=== PATIENT | female | born 1940 | race Caucasian/White ===

== ENCOUNTER → 2017-03-24 | Outpatient (CLI) | payer OTHER | LOC: CIMAGING 08:41 | PROVIDERS: ATTEND Specialist | DX: R33.9 Retention of urine, unspecified (principal); N13.30 Unspecified hydronephrosis; Z96.0 Presence of urogenital implants | CPT/HCPCS: 76770-PO ==

== ENCOUNTER 2017-04-27 05:58 | Inpatient (IN) | payer OTHER ==
--- NOTE | 2017-04-24 15:09 | CPEKG ---
Heart Rate: 81 RR Interval: 741 P-R Interval: 164 QRSD Interval: 84 QT Interval: 372 QTC Interval: 432 P [place]: 69 QRS [place]: 42 T Wave [place]: 38 EKG Severity - NORMAL ECG - EKG Impression: SINUS RHYTHM Electronically Signed By: Alli Be 24-Apr-2017 16:05:44
[2017-04-27] MEDS ORDERED: LIDOCAINE 1% 2 ML INJ ID PRN (06:40)
[2017-04-27] MEDS ORDERED: LR 1,000 ML IV ONE (06:40)
--- NOTE | 2017-04-27 07:02 | PDANEPAE ---
ANE History of Present Illness 76 year old with bladder tumor ANE Past Medical History - Cardiovascular History Hx Hypertension: Yes Hx Arrhythmias: No Hx Chest Pain: No Hx Coronary Artery / Peripheral Vascular Disease: No Hx CHF / Valvular Disease: No Hx Palpitations: No Cardiovascular History Comment: pcp monitors bp meds. high chol. Loud systolic murmur on exam. Pt reports echo "years ago" Exercise " I walk around the house.". Echo ordered and done. Reviewed with tech. ?severe MR, mild , nl LVFx - Pulmonary History Hx COPD: No Hx Asthma/Reactive Airway Disease: No Hx Recent Upper Respiratory Infection: No Hx Oxygen in Use at Home: No Hx Sleep Apnea: Yes Sleep Apnea Screening Result - Last Documented: Positive Pulmonary History Comment: jessica positive uses cpap- instructed pt to bring to [facility] - Neurologic History Hx Cerebrovascular Accident: No Hx Seizures: No Hx Dementia: No Neurologic History Comment: hx of lumbar and cervical surgeries. peripheral neuropathy to bilateral feet. numbness to fingers - Endocrine History Hx Diabetes: Yes Endocrine History Comment: type 2. hypothyroidism - Renal History Hx Renal Disorders: Yes Renal History Comment: current bladder tumor - Liver History Hx Hepatic Disorders: No - Neurological & Psychiatric Hx Hx Neurological and Psychiatric Disorders: No - Cancer History Hx Cancer: No - Congenital Disorder History Hx Congenital Disorders: No - GI History Hx Gastrointestinal Disorders: No - Other Health History Other Health History: wears glasses. missing teeth - Chronic Pain History Chronic Pain: Yes (low back) - Surgical History Prior Surgeries: lumbar spinal surgery. cervical spine surgery. left delia. bladder surgery ANE Review of Systems - Exercise capacity METS (RN): 3 METS ANE Patient History - Allergies Allergies/Adverse Reactions: Opioids - Morphine Analogues Allergy (Verified 04/19/17 11:00) Other-Enter Comments - Home Medications Home Medications: Gabapentin [Neurontin 300 MG (*)] 300 mg PO HS 04/19/17 [Last Taken 04/26/17] Herbals/Supplements -Info Only 1 ea PO DAILY 04/19/17 [Last Taken 04/26/17] Insulin Glargine [Lantus 100 UNITS/ML (*)] 42 units SC HS 04/19/17 [Last Taken 04/26/17] Levothyroxine [Synthroid 137 mcg (*)] 137 mcg PO DAILY06 04/19/17 [Last Taken ] Lisinopril [Zestril 5 mg (*)] 5 mg PO DAILY 04/19/17 [Last Taken 04/27/17 05:00] Rosuvastatin Calcium [Crestor 10mg (RX)] 10 mg PO DAILY 04/19/17 [Last Taken 05:00] glipiZIDE [Glucotrol] 10 mg PO BIDMEAL 04/19/17 [Last Taken 04/26/17] traMADol [Ultram 50 mg (*)] 50 mg PO Q4HRS 04/19/17 [Last Taken 04/27/17 05:00] - NPO status NPO Since - Liquids (Date): 04/26/17 NPO Since - Liquids (Time): 23:00 NPO Since - Solids (Date): 04/26/17 NPO Since - Solids (Time): 22:00 - Anes Hx Anes Hx: no prior problems - Smoking Hx Smoking Status: Never smoked - Alcohol Use Alcohol Use: None - Family Anes Hx Family Hx Anesthesia Complications: none ANE Labs/Vital Signs - Vital Signs Vital Signs: reviewed preoperatively; see RN documention for details Blood Pressure: 147/74 Heart Rate: 89 Respiratory Rate: 16 O2 Sat (%): 91 Height: 165.1 cm Weight: 77.111 kg ANE Physical Exam - Airway Neck exam: FROM Mallampati Score: Class 2 Mouth exam: poor dentition - Pulmonary Pulmonary: no respiratory distress, clear to auscultation - Cardiovascular Cardiovascular: systolic murmur - ASA Status ASA Status: III ANE Anesthesia Plan Anesthesia Plan: GA w LMA, GA with mask
[2017-04-27] MEDS ORDERED: IOPAMIDOL (ISOVUE-M 300) 15 ML VIAL ONE (07:10)
[2017-04-27] MEDS ORDERED: levOFLOXACIN 500 MG/DEXTROSE 100 ML IV ONE (08:12)
--- NOTE | 2017-04-27 08:25 | ECHO ---
[id number] + + [address] : : [place] [address] : : [phone] + + Adult Echocardiographic Report + --------+ :Name: MAYELIN DALAL KStudy Date: 04/27/2017 07:52 AM : : Hospital Admission Number: [id number] Debra n: Preop: :: 1940 Gender: Female : :Age: 76 yrs Race: WH : :Reason For Study: Murmur : + --------+ MMode/2D Measurements \T\ Calculations IVSd: 0.70 cm LVIDd: 4.7 cm FS: 31.0 % LA dimension: LVPWd: 0.96 cm LVIDs: 3.3 cm EDV(Teich): 4.3 cm 103.2 ml ESV(Teich): 42.6 ml EF(Teich): 58.7 % LVOT diam: 1.9 cmLVLd ap4: 7.5 cm SV(MOD-sp4): LVOT area: EDV(MOD-sp4): 43.0 ml 68.0 ml 2.8 cm2 LVLs ap4: 6.2 cm ESV(MOD-sp4): 25.0 ml EF(MOD-sp4): 63.2 % Normal Measurement Values: + + :LVIDd (3.5-5.7cm) IVSd (0.6-1.1cm) LVPWd (0.6-1.1cm) Aortic Root (2.0-3.7cm)Left Atrium (1.5-4.0cm): :LV Vol(d) (76-115ml) LV Vol(s) (29-48ml) Ejec Fraction (50-65%)PV Carrillo (0.6- 1.2m/s) TV Carrillo (0.4-1.0m/s) : :MV E Carrillo (0.8-1.0m/s)MV A Carrillo (0.3-1.0m/s)LVOT Carrillo (0.7-1.2m/s) Asc Ao Carrillo ( 0.9-1.8m/s) : + + Doppler Measurements \T\ Calculations MV E max carrillo: Ao mean PG: LV V1 max: SV(LVOT): 92.8 cm/sec 18.7 mmHg 89.3 cm/sec 61.0 ml MV A max carrillo: Ao V2 mean: LV V1 max P.6 cm/sec 206.3 cm/sec 3.2 mmHg MV E/A: 0.83 Ao V2 VTI: 68.1 cm LV V1 mean PG: ANNELIESE(I,D): 0.90 cm2 1.9 mmHg LV V1 mean: 64.5 cm/sec LV V1 VTI: 21.6 cm TR max carrillo: 272.8 cm/sec TR max P.8 mmHg RAP systole: 10.0 mmHg RVSP(TR): 39.8 mmHg Left Ventricle The left ventricle is normal in size. There is normal left ventricular wall thickness. Left ventricular systolic function is normal. Ejection Fraction = 60-65%. No regional wall motion abnormalities noted. Right Ventricle The right ventricle is normal in size and function. Atria The left atrium is mildly dilated. Right atrial size is normal. The interatrial septum is intact with no evidence for an atrial septal defect. Mitral Valve The mitral valve is normal in structure and function. There is no evidence of mitral valve prolapse. There is no mitral valve stenosis. There is mild mitral regurgitation. Tricuspid Valve Normal tricuspid valve. There is severe tricuspid regurgitation. Right ventricular systolic pressure is 35-40mmHg. Aortic Valve Moderate to severe calcification. Mild valvular aortic stenosis. AV max PG is 30mmHG. AV mean PG is 19mmHG. Trace aortic regurgitation. Pulmonic Valve The pulmonic valve is normal in structure and function. Mild pulmonic valvular regurgitation. Great Vessels The aortic root is normal size. Pericardium/Pleural There is no pericardial effusion. Conclusion A complete two-dimensional transthoracic echocardiogram was performed (2D, M-mode, Doppler and color flow Doppler). Left ventricular systolic function is normal. Ejection Fraction = 60-65%. The left atrium is mildly dilated. Mild mitral regurgitation. Severe tricuspid regurgitation. RVSP 35-40mmHg. Moderate to severe aortic valve calcification.Mild valvular aortic stenosis with max and mean gradient of 30mm and 19 mm Hg respectively. Trace aortic regurgitation. Mild pulmonic valvular regurgitation. Final Reading Physician: Precious Karimi signed on 04/27/2017 08:24 AM Ordering Physician: Helena Farias Performed By: Aleisha Cortés RDCS
--- NOTE | 2017-04-27 08:26 | PDGENHP ---
History & Physical Chief Complaint: Bladder tumor, bilateral hydronephrosis History of Present Illness: Pt. w/ bilateral hydrnephrosis and possible bladder tumor noted on recent cystoscopy. Pertinent Past, Social, Family History: PMH - CKD, DM, heart murmur, hypothyroidism. PSH - cervical & lumbar fusions, left hip replacement 2012. Habits - no tobacco or smoking history Relevant Physical Exam: Gen - obese. Abd - soft. - atrophic vaginitis. Neuro - alert & oriented. Heart - reg. rate. Chest - unlabored respirations Cardiorespiratory Assessment: Reg. rate
[2017-04-27] MEDS ORDERED: fentaNYL 100 MCG/2 ML INJ ONE ×3 (08:52→10:21)
[2017-04-27] MEDS ORDERED: PROPOFOL 200 MG/20 ML VIAL ONE (08:52)
[2017-04-27] MEDS ORDERED: LIDOCAINE 2% 5 ML SDV ONE (08:52)
[2017-04-27] MEDS ORDERED: PROMETHAZINE HCL 25 MG/ML INJ IVP PRN ×2 (10:16→10:38)
[2017-04-27] MEDS ORDERED: NALOXONE HCL 0.4 MG/ML INJ IVP PRN (10:16)
[2017-04-27] MEDS ORDERED: ONDANSETRON 4 MG/2 ML VIAL IVP PRN ×2 (10:16→10:38)
--- NOTE | 2017-04-27 10:17 | POSTANESTH ---
Post Anesthetic Evaluation Cardiovascular Status: Normal, Stable Respiratory Status: Normal, Stable, Other, See Comment Level of Consciousness/Mental Status: Can Participate in Eval Pain Control: Adequate, Prn Tx Ordered Nausea/Vomiting Control: Adequate, Prn Tx Ordered Complications Possibly Related to Anesthesia: None Noted
[2017-04-27] MEDS: fentaNYL 100 MCG/2 ML INJ IVP PRN ×2 (10:22→10:37)
--- NOTE | 2017-04-27 10:36 | POSTOPPROG ---
Post Op Note Date of Operation: 04/28/17 Surgeon: Helena Farias (# [id number]) Anesthesia: LMA Pre-op Diagnosis: Bladder tumor, bilateral hydronephrosis Post-op Diagnosis: Large bladder tumor, bilateral hydronephrosis Procedure: TURBT > 5 cm Findings: See op note Inf/Abcess present in the surg proc area at time of surgery?: No EBL: Minimal Complications: None Specimen(s): Bladder tumor Text Box - Additional Text Additional Text: 1. Admit for CBI. 2. Noncontrast abdominopelvic CT later today. 3. If hydro is still present, then will have interventional radiology place antegrade ureteral stents.
[2017-04-27] MEDS ORDERED: OPIUM/BELLADONNA ALKALO SUPP PR PRN (10:38)
[2017-04-27] MEDS ORDERED: HYDROCODONE/APAP 5/325 TAB PO PRN (10:38)
[2017-04-27] MEDS: 1/2 NS 1,000 ML IV SCH ×2 (12:03→22:13)
[2017-04-27] MEDS: traMADol 50 MG TAB PO PRN ×2 (12:10→19:36)
[2017-04-27] MEDS: INSULIN REGULAR HUMAN 100 UNIT/ML SC SCH ×3 (18:21→22:14)
[2017-04-27] MEDS: glipiZIDE 10 MG TAB PO SCH (18:35)
[2017-04-27] MEDS ORDERED: D50W 25 GM/50 ML SYR IVP PRN (21:59)
[2017-04-27] MEDS: GABAPENTIN 300 MG CAP PO SCH (22:13)
[2017-04-28] MEDS: traMADol 50 MG TAB PO PRN ×4 (00:44→14:53)
[2017-04-28] MEDS: INSULIN GLARGINE 100 UNITS/ML SYRINGE SC SCH ×2 (00:51→22:30)
[2017-04-28 04:53] LABS: HEMATOCRIT 31.8 % (38.0-47.0); MEAN CELL HEMOGLOBIN 26.1 pg (27.9-34.1); MEAN CELL HEMOGLOBIN CONCENTR. 31.4 g/dL (32.4-36.7); RED BLOOD CELL COUNT 3.83 10^6/uL (4.18-5.33); RED CELL DISTRIBUTION WIDTH 14.2 % (11.5-15.2)
[2017-04-28 05:23] LABS: ANION GAP 11 mEq/L (8-16); CALCIUM 8.5 mg/dL (8.5-10.4); CARBON DIOXIDE 25 mEq/l (22-31); CHLORIDE 107 mEq/L (97-110); CREATININE 1.8 mg/dL (0.6-1.0); GLOMERULAR FILTRATION RATE 27; GLUCOSE 132 mg/dL (70-100); POTASSIUM 4.6 mEq/L (3.5-5.2); SODIUM 143 mEq/L (134-144)
[2017-04-28] MEDS: LEVOTHYROXINE 137 MCG TAB PO SCH (05:51)
[2017-04-28] MEDS: 1/2 NS 1,000 ML IV SCH ×2 (05:51→23:01)
[2017-04-28] MEDS: glipiZIDE 10 MG TAB PO SCH ×2 (07:52→16:41)
[2017-04-28] MEDS: INSULIN REGULAR HUMAN 100 UNIT/ML SC SCH ×3 (07:53→16:38)
[2017-04-28] MEDS: ROSUVASTATIN CALCIUM 10 MG TAB PO SCH (07:54)
[2017-04-28] MEDS: LISINOPRIL 5 MG TAB PO SCH (07:55)
[2017-04-28] MEDS ORDERED: OPIUM/BELLADONNA ALKALO SUPP PR PRN (10:09)
[2017-04-28] MEDS: HYDROmorphONE/DILAUDID 1 MG/ML SYR IVP PRN ×3 (10:23→23:00)
--- NOTE | 2017-04-28 10:31 | SOAPPROG ---
[facility] Progress Note Assessment/Plan: Assessment: 1. Bladder tumor - s/p TURBT yesterday - stable. 2. Bilateral hydronephrosis - probably due to significant bladder prolapse. Scheduled for antegrade stent placement in IR today. 3. Urinary retention - probably due to significant bladder prolapse. 4. CKD - improved this AM. Plan: 1. D/C CBI 2. Continue IVF's while NPO. 3. IR antegrade stent placement later today. 4. Resume renal diet after IR procedure. 5. Continue Rivera - she will need to be discharged w/ this. Management plan reviewed w/ pt. and day nurse. Subjective: Complains of chronic right back and ankle pain. No abdominal pain. Objective: Vital Signs Temp Pulse Resp BP Pulse Ox 36.9 C 71 18 130/54 H 94 04/28/17 07:38 04/28/17 07:38 04/28/17 07:38 04/28/17 07:38 04/28/17 07:38 Laboratory Results 04/28/17 04:14 04/28/17 04:14 04/27/17 04/28/17 04/29/17 05:59 05:59 05:59 Intake Total 3702 Output Total 1450 Balance 2252 Physical Exam - Physical Exam General Appearance: WD/WN, alert, no apparent distress Abdomen: non-tender, soft Pelvic Exam: other (urine completely clear on CBI) Skin: normal color, warm/dry Extremities: non-tender Neuro/Psych: alert, normal mood/affect, oriented x 3 ICD10 Worksheet Patient Problems: Problems Problem Status Onset Bladder neoplasm of uncertain malignant potential Acute Chronic kidney disease Acute Hydronephrosis Acute Urinary retention Acute - ICD10 Problem Qualifiers (1) Bladder neoplasm of uncertain malignant potential (2) Hydronephrosis Qualifiers: Hydronephrosis type: H (3) Urinary retention (4) Chronic kidney disease Qualifiers: Chronic kidney disease stage: C
[2017-04-28] MEDS ORDERED: HYDROCODONE/APAP 5/325 TAB PO PRN (10:32)
[2017-04-28] MEDS ORDERED: levOFLOXACIN 500 MG/DEXTROSE 100 ML IV ONE (14:30)
--- NOTE | 2017-04-28 18:07 | PDANEPAE ---
ANE Past Medical History - Cardiovascular History Hx Hypertension: Yes Hx Arrhythmias: No Hx Chest Pain: No Hx Coronary Artery / Peripheral Vascular Disease: No Hx CHF / Valvular Disease: No Hx Palpitations: No Cardiovascular History Comment: pcp monitors bp meds. high chol. Loud systolic murmur on exam. Pt reports echo "years ago" Exercise " I walk around the house.". Echo ordered and done. Reviewed with tech. ?severe MR, mild , nl LVFx - Pulmonary History Hx COPD: No Hx Asthma/Reactive Airway Disease: No Hx Recent Upper Respiratory Infection: No Hx Oxygen in Use at Home: No Hx Sleep Apnea: Yes Sleep Apnea Screening Result - Last Documented: Positive Pulmonary History Comment: jessica positive uses cpap- instructed pt to bring to [facility] - Neurologic History Hx Cerebrovascular Accident: No Hx Seizures: No Hx Dementia: No Neurologic History Comment: hx of lumbar and cervical surgeries. peripheral neuropathy to bilateral feet. numbness to fingers - Endocrine History Hx Diabetes: Yes Hypothyroid: Yes Hyperthyroid: No Obesity: no Endocrine History Comment: type 2. hypothyroidism - Renal History Hx Renal Disorders: Yes Renal History Comment: current bladder tumor - Liver History Hx Hepatic Disorders: No - Neurological & Psychiatric Hx Hx Neurological and Psychiatric Disorders: No - Cancer History Hx Cancer: No - Congenital Disorder History Hx Congenital Disorders: No - GI History Hx Gastrointestinal Disorders: No - Other Health History Other Health History: wears glasses. missing teeth - Chronic Pain History Chronic Pain: Yes (low back) - Surgical History Prior Surgeries: lumbar spinal surgery. cervical spine surgery. left delia. bladder surgery ANE Review of Systems - Exercise capacity METS (RN): 3 METS ANE Patient History - Allergies Allergies/Adverse Reactions: Opioids - Morphine Analogues Allergy (Verified 04/19/17 11:00) Other-Enter Comments - Home Medications Home Medications: Gabapentin [Neurontin 300 MG (*)] 300 mg PO HS 04/19/17 [Last Taken 04/26/17] Herbals/Supplements -Info Only 1 ea PO DAILY 04/19/17 [Last Taken 04/26/17] Insulin Glargine [Lantus 100 UNITS/ML (*)] 42 units SC 04/19/17 [Last Taken 04/26/17] Levothyroxine [Synthroid 137 mcg (*)] 137 mcg PO DAILY06 04/19/17 [Last Taken ] Lisinopril [Zestril 5 mg (*)] 5 mg PO DAILY 04/19/17 [Last Taken 04/27/17 05:00] Rosuvastatin Calcium [Crestor 10mg (RX)] 10 mg PO DAILY 04/19/17 [Last Taken 05:00] glipiZIDE [Glucotrol] 10 mg PO BIDMEAL 04/19/17 [Last Taken 04/26/17] traMADol [Ultram 50 mg (*)] 50 mg PO Q4HRS 04/19/17 [Last Taken 04/27/17 05:00] - NPO status NPO Since - Liquids (Date): 04/28/17 NPO Since - Liquids (Time): 00:00 NPO Since - Solids (Date): 04/28/17 NPO Since - Solids (Time): 00:00 - Smoking Hx Smoking Status: Never smoked - Alcohol Use Alcohol Use: None - Family Anes Hx Family Hx Anesthesia Complications: none ANE Labs/Vital Signs - Labs Result Diagrams: 04/28/17 04:14 04/28/17 04:14 - Vital Signs Blood Pressure: 90/57 Heart Rate: 97 Respiratory Rate: 18 O2 Sat (%): 94 Height: 165.1 cm Weight: 77.111 kg ANE Physical Exam - Airway Neck exam: FROM Mallampati Score: Class 2 Mouth exam: poor dentition - Pulmonary Pulmonary: no respiratory distress, no rales or rhonchi, clear to auscultation - Cardiovascular Cardiovascular: regular rate and rhythym, systolic murmur ANE Anesthesia Plan Anesthesia Plan: general endotracheal anesthesia
[2017-04-28] MEDS ORDERED: fentaNYL 100 MCG/2 ML INJ ONE (18:14)
[2017-04-28] MEDS ORDERED: PROPOFOL 200 MG/20 ML VIAL ONE (18:15)
[2017-04-28] MEDS ORDERED: ROCURONIUM 50 MG/5 ML VIAL ONE (18:15)
[2017-04-28] MEDS ORDERED: LIDOCAINE 2% 5 ML SDV ONE (18:15)
[2017-04-28] MEDS ORDERED: LIDOCAINE 1% 300 MG/30 ML SDV ONE (19:14)
[2017-04-28] MEDS ORDERED: IOPAMIDOL (ISOVUE-300) 100 ML BTL ONE (19:14)
[2017-04-28] MEDS ORDERED: SUGAMMADEX SODIUM 200 MG/2 ML VIAL IVP ONE (19:48)
--- NOTE | 2017-04-28 19:59 | POSTOPPROG ---
Post Op Note Date of Operation: 04/28/17 Surgeon: Dannielle Coronado Anesthesia: GET(General Endotracheal) Pre-op Diagnosis: renal obstruction Post-op Diagnosis: same Indication: need stents Procedure: bilateral double-J stent placement Findings: 8Fr x 22cm stents placed; no perc nephs. Inf/Abcess present in the surg proc area at time of surgery?: No Depth: Superfical (Skin SQ) EBL: Minimal Complications: None
[2017-04-28] MEDS ORDERED: fentaNYL 100 MCG/2 ML INJ IVP PRN (20:12)
[2017-04-28] MEDS ORDERED: ACETAMINOPHEN 500 MG TAB PO PRN (20:12)
[2017-04-28] MEDS ORDERED: NALOXONE HCL 0.4 MG/ML INJ IVP PRN (20:12)
--- NOTE | 2017-04-28 21:17 | GOP ---
[f rep st] OPERATIVE REPORT DATE OF OPERATION: 04/27/2017 SURGEON: Helena Farias MD ANESTHESIA: General endotracheal. PREOPERATIVE DIAGNOSIS: 1. Greater than 5 cm bladder tumor. 2. Bilateral hydroureteronephrosis. 3. Urinary retention. POSTOPERATIVE DIAGNOSIS: 1. Greater than 5 cm bladder tumor. 2. Bilateral hydroureteronephrosis. 3. Large cystocele. 4. Urinary retention. PROCEDURE PERFORMED: Transurethral resection of large bladder tumor. FINDINGS: 1. Extremely friable and abnormal bladder mucosa encompassing the posterior wall and dome. 1. Inability to identify location of ureteral orifices as a result of chronic mucosal inflammation and severe anatomical distortion from her large cystocele. ESTIMATED BLOOD LOSS: Less than 50 cc. INDICATIONS: This patient recently presented to my office for the first time with urinary retention , chronic kidney disease, and bilateral hydroureteronephrosis. Hydronephrosis did not improve with indwelling catheterization. Cystoscopy in the office revealed a significantly abnormal bladder muco sa. As a result, the patient presents for operative management at this time. The indications for t he procedures as well as potential risks and complications were discussed with the patient preoperat john. She appeared to understand, her questions were answered, and she wished to proceed. Written informed surgical consent was, thereafter, obtained. DESCRIPTION OF PROCEDURE: The patient was brought to the operating room and administered general en dotracheal anesthesia. She was carefully placed in the dorsal lithotomy position on the cystoscopic table. The genital area was sterilely prepped with Betadine scrub and paint and then draped ____. Examination of the bladder revealed very friable mucosa with significant bleeding with simple penetration of the scope into the bladder and some initial irrigation through the cystoscope. It t ook a significant amount of time to be able to get enough clearing of the bleeding in order to visua lize the mucosa more adequately. It appeared that the patient had a sizable area of mucosal irregul arity along the posterior wall and approaching the dome. The mucosa was generally very friable in t his area as well as erythematous and bled very easily. The remainder of the bladder revealed a coup le of areas of friable mucosa, namely along the mid trigone and the left lateral wall. However, the se areas did not have any other irregular appearance to them otherwise. The patient was also noted to have a small bladder capacity with a very prominent cystocele that became extremely distended wit h filling of the bladder during routine cystoscopy. Due to the distortion of the trigone and the as sociated chronic inflammation of the bladder mucosa in general, I was unable to localize the positio n of the ureteral orifices bilaterally. I then decided to obtain direct marketing representative biopsies from the abnormal mucosa along the posterior wall. A 26-Montserratian resectoscopic sheath with the laser resectoscope and a standard loop were then inserted . I then carefully obtained direct marketing representative biopsies from numerous areas that looked abnormal along the posterior aspects and approaching the dome of the bladder. I then used a button electrode to th oroughly fulgurate these areas. Care was taken to ensure that no gross perforation of the bladder h ad occurred as a result of the resection process. However, I did obtain deep enough tissue to ensur e that I had muscularis propria as noted visually. I did not completely fulgurate all of the abnorm al friable mucosa as it would have been very difficult to do so based on the extent of the bladder w all involved as well as the poor visualization from the bleeding of this tissue. However, at the co nclusion of the procedure, the bladder was fairly hemostatic. The instruments were removed and a 22 -Montserratian, 3-way Rivera catheter inserted. Manual irrigation then confirmed the presence of relatively clear urine. Continuous irrigation with normal saline was then initiated. The catheter was connec mayi to bag drainage. At this point, bimanual exam was performed. There were no obvious abnormalities identified, with th e exception of a significant cystocele as noted above. The patient was then awakened, transferred t o her bed, then taken to the recovery room. She tolerated the procedure well overall. COMPLICATIONS: None. DISPOSITION: She was transferred to the recovery room in stable condition. She will be admitted fo r postoperative care including continuous bladder irrigation. I will obtain a CT scan later today t o determine whether there is still presence of hydronephrosis. If there is, arrangements will be misty gatica for an antegrade bilateral ureteral stent placement through Interventional Radiology on Monday. /[id number]/MODL
[2017-04-28] MEDS: GABAPENTIN 300 MG CAP PO SCH (22:30)
[2017-04-29] MEDS: INSULIN REGULAR HUMAN 100 UNIT/ML SC SCH ×5 (00:46→21:29)
[2017-04-29 04:50] LABS: ANION GAP 10 mEq/L (8-16); CALCIUM 8.2 mg/dL (8.5-10.4); CARBON DIOXIDE 23 mEq/l (22-31); CHLORIDE 108 mEq/L (97-110); CREATININE 1.9 mg/dL (0.6-1.0); GLOMERULAR FILTRATION RATE 26; GLUCOSE 83 mg/dL (70-100); SODIUM 141 mEq/L (134-144)
[2017-04-29] MEDS: LEVOTHYROXINE 137 MCG TAB PO SCH (06:32)
[2017-04-29] MEDS: glipiZIDE 10 MG TAB PO SCH ×2 (09:59→18:15)
[2017-04-29] MEDS: ROSUVASTATIN CALCIUM 10 MG TAB PO SCH (09:59)
[2017-04-29] MEDS: LISINOPRIL 5 MG TAB PO SCH (10:00)
[2017-04-29] MEDS: 1/2 NS 1,000 ML IV SCH (18:15)
[2017-04-29] MEDS: INSULIN GLARGINE 100 UNITS/ML SYRINGE SC SCH (21:29)
[2017-04-29] MEDS: GABAPENTIN 300 MG CAP PO SCH (21:29)
--- NOTE | 2017-04-29 21:58 | SOAPPROG ---
[facility] Progress Note Assessment/Plan: Assessment: s/p bladder biopsy and antegrade stents. Pt seen this am ~9:30 and was stable for discharge. Orders placed but RN contacted Urology PA ~5:30pm and stated patient weak and having foot pain-not stable for discharge Plan: Hold discharge PT/OT eval. foot pain and weakness of unclear etiology- cannot explain from surgical or post op standpoint. Requested hospitalist eval- appreciate Dr. Decker's input. Will reassess in am 04/29/17 21:55 Subjective: No pelvic or back pain. No fevers. No N/V. Tolerating diet. Objective: Vital Signs Temp Pulse Resp BP Pulse Ox 37.7 C 104 H 16 111/56 L 91 L 04/29/17 20:00 04/29/17 20:00 04/29/17 20:00 04/29/17 20:00 04/29/17 20:00 Microbiology 04/28/17 19:17 Gram Stain - Final Other - Aspirate 04/28/17 19:17 Gram Stain - Final Other - Aspirate Laboratory Results 04/28/17 04:14 04/29/17 04:20 04/28/17 04/29/17 04/30/17 05:59 05:59 05:59 Intake Total 3702 2695 1200 Output Total 1450 3065 2550 Balance 2352 370 -1350 Physical Exam - Physical Exam General Appearance: alert, no apparent distress Respiratory: No respiratory distress Abdomen: non-tender, soft Skin: normal color, warm/dry Neuro/Psych: no motor/sensory deficits, oriented x 3 ICD10 Worksheet Patient Problems: Problems Problem Status Onset Bladder neoplasm of uncertain malignant potential Acute Chronic kidney disease Acute Hydronephrosis Acute Urinary retention Acute
--- NOTE | 2017-04-29 22:20 | GCON ---
[f rep st] CONSULTATION CONSULTING QUESTION: Management of leg pain and weakness. HISTORY OF PRESENT ILLNESS: A 76-year-old female with a history of diabetes and urinary obstruction , admitted for ureteral stent placement, who is 1 day post procedure, experiencing bilateral foot pa in and weakness. Per the patient's report, she has chronic neuropathy, occasionally manifests as fo ot pain, but certainly not to the severity that she has experienced in the last few days. She descr ibes that her chronic back pain, which is positionally exacerbated, has been markedly worse because of needing to lie flat on the procedural tables and postprocedurally. She endorses a pressure-like pain, right greater than left, in the lower extremity with some burning sensation afterward, as well as markedly worsening pain of her chronic back. Denies any urinary frequency, dysuria, does have a Rivera catheter in place. Reports that her urologic symptoms have resolved postprocedurally. She d enies any chest pain, shortness of breath, headache, vision changes, nausea, vomiting. When reflect ing on her endurance prior to this procedure, she notes that she was able to walk close to 20 to 30 feet at home before needing to sit and rest and/or use a wheelchair for extended durations of walkin g. She does report that her endurance has gotten worse since October of this year when she first st arted her workups and hospitalizations for urinary obstruction. PAST MEDICAL HISTORY: 1. Diabetes mellitus. 2. Hypothyroidism. 3. Chronic neuropathy. 4. Chronic back pain, status post cervical and lumbar surgeries. 5. A left total knee arthroplasty. 6. CKD. 7. Uterine prolapse. SOCIAL HISTORY: Patient is a retired occupational therapist. Denies tobacco, alcohol, or illicit d rugs. FAMILY HISTORY: Her mother is anticipating her 89 birthday this year without known diabetes in her family. REVIEW OF SYSTEMS: A 10-point review of systems is negative with the exception of that reported in the HPI. PHYSICAL EXAMINATION: VITAL SIGNS: Blood pressure 99/48, heart rate 93, respiratory rate 18, 92% o n room air, 37.2. GENERAL: This is a pleasant, elderly female, lying on her side in bed. HEENT: Notable for moist mucous membranes. Eyes: Negative for any icterus. CARDIAC: Patient is regular rate and rhythm. A systolic murmur is appreciated. PULMONARY: Clear to auscultation bilaterally. GASTROINTESTINAL: Positive bowel sounds. ABDOMEN: Soft and nontender. : There is a Rivera cat heter in place with slightly bloody urine. MUSCULOSKELETAL: Patient has good pulses of her bilater al lower extremities. They are warm to touch with no discoloration. Patient does have pain to palp ation of her right ankle. The joint itself has normal mobility. No clear effusion is appreciated. No erythema. SKIN: No rashes are appreciated. PSYCHIATRIC: She is pleasant and cooperative on i nterview and examination. LABORATORY DATA: Sodium 141, creatinine 1.9 which is near recent baseline. CT of the abdomen and p brown, which I personally reviewed and interpreted, showed bilateral hydronephrosis without ureterol ithiasis. Transthoracic echocardiogram, which I reviewed, shows ejection fraction of 60% with trace aortic regurgitation, mild mitral regurgitation. ASSESSMENT AND PLAN: This is a 76-year-old female, status post ureteral stenting, with weakness and bilateral lower extremity pain. 1. Acute, right greater than left, foot and ankle pain. Based on the patient's description and her examination, I have lower suspicion or concern for limb ischemia or perfusion issues. I suspect th is may be some worsening of chronic neuropathy related to her diabetes and chronic back pain. Recom mend continuing her gabapentin and Ultram as ordered currently. Ordered a physical therapy evaluati on to assist, and have discussed at length recommendations that the patient have a short stay at a r ehabilitation facility to help her with her endurance and strengthening going forward. Based on the patient's description, I think her starting point was very weak, and that a loss of endurance and s trength in an acute hospitalization is quite simple, and patient's are unable to ambulate further th an from one side of a room to another without fatigue. We will await physical therapy and occupatio nal therapy evaluations and see how her symptoms evolve overnight with rest and pain medications. 2. Chronic kidney disease. Patient's creatinine is 1.9. Urology has her on low-dose lisinopril an d IV fluids. We will allow the management of this, per the primary team. 3. Diabetes. Agree with continuing the patient's home medications of Lantus and glipizide. Blood sugars have been adequately controlled during her stay, ranging from 79-217. 4. Hypothyroidism. We will continue her Synthroid as ordered. 5. Prophylaxis. Heparin would be appropriate in the setting of chronic kidney disease. Suspect th at Urology has not cleared her for anticoagulation in the setting of her recent procedure. We will defer that decision to them. 6. Diet. Diabetic/renal. DISPOSITION: I think the patient would be appropriate for half-way placement if she remains weak with symptoms tomorrow. I have discussed the case with the consulting physician, Dr. Kern. We will follow along. Thank you for the consultation. /[id number]/MODL
[2017-04-30] MEDS: LEVOTHYROXINE 137 MCG TAB PO SCH (03:50)
[2017-04-30] MEDS: traMADol 50 MG TAB PO PRN ×2 (03:50→21:02)
[2017-04-30] MEDS: 1/2 NS 1,000 ML IV SCH (05:30)
[2017-04-30] MEDS: LISINOPRIL 5 MG TAB PO SCH (09:26)
[2017-04-30] MEDS: ROSUVASTATIN CALCIUM 10 MG TAB PO SCH (09:26)
[2017-04-30] MEDS: glipiZIDE 10 MG TAB PO SCH ×2 (09:26→18:14)
[2017-04-30] MEDS: INSULIN REGULAR HUMAN 100 UNIT/ML SC SCH ×4 (09:27→21:00)
--- NOTE | 2017-04-30 11:45 | PDIAF ---
- Diagnosis Code Status: Full Code - Medication Management Discharge Medications: Medications to Continue on Transfer Gabapentin [Neurontin 300 MG (*)] 300 mg PO HS 04/19/17 [Last Taken 04/26/17] Herbals/Supplements -Info Only 1 ea PO DAILY 04/19/17 [Last Taken 04/26/17] Insulin Glargine [Lantus 100 UNITS/ML (*)] 42 units SC HS 04/19/17 [Last Taken 04/26/17] Levothyroxine [Synthroid 137 mcg (*)] 137 mcg PO DAILY06 04/19/17 [Last Taken ] Lisinopril [Zestril 5 mg (*)] 5 mg PO DAILY 04/19/17 [Last Taken 04/27/17 05:00] Rosuvastatin Calcium [Crestor 10mg (RX)] 10 mg PO DAILY 04/19/17 [Last Taken 05:00] glipiZIDE [Glucotrol] 10 mg PO BIDMEAL 04/19/17 [Last Taken 04/26/17] traMADol [Ultram 50 mg (*)] 50 mg PO Q4HRS 04/19/17 [Last Taken 04/27/17 05:00] Discharge Medications: Refer to the Discharge Home Medication list for PRN reason. - Orders Services needed: Registered Nurse, Physical Therapy, Occupational Therapy Diet Recommendation: no restrictions on diet Rivera: Yes Activity/Weight Bearing Restrictions: none - Follow Up Care Current Providers and Referrals: Dimitry Xiong MD [Primary Care Provider] -
--- NOTE | 2017-04-30 11:48 | SOAPPROG ---
SOAP Progress Note Assessment/Plan: Assessment: s/p bladder biopsy and antegrade stents. Pt seen by hospitalist as well as PT/OT SNF recommended discussed with case repairer- likely tomorrow [employer] form filled out Plan: D/c to snf when available. 04/29/17 21:55 04/30/17 11:46 Subjective: Feels a bit better today. Still weak but foot pain is better No nausea or vomiting. No pelvic or flank pain Objective: Vital Signs Temp Pulse Resp BP Pulse Ox 36.9 C 77 16 88/35 L 95 04/30/17 08:00 04/30/17 08:00 04/30/17 08:00 04/30/17 09:26 04/30/17 08:00 Microbiology 04/28/17 19:17 Gram Stain - Final Other - Aspirate 04/28/17 19:17 Gram Stain - Final Other - Aspirate Laboratory Results 04/28/17 04:14 04/29/17 04:20 04/29/17 04/30/17 05/01/17 05:59 05:59 05:59 Intake Total 2695 2800 Output Total 3065 3700 Balance -370 -900 Physical Exam - Physical Exam General Appearance: alert, no apparent distress Respiratory: No respiratory distress Abdomen: non-tender, soft Skin: normal color, warm/dry Extremities: non-tender, normal inspection, No calf tenderness, No swelling Neuro/Psych: alert, oriented x 3 ICD10 Worksheet Patient Problems: Problems Problem Status Onset Bladder neoplasm of uncertain malignant potential Acute Chronic kidney disease Acute Hydronephrosis Acute Urinary retention Acute
[2017-04-30 13:29] LABS: GLUCOSE 327 mg/dL (70-100)
--- NOTE | 2017-04-30 13:35 | HOSPPROG ---
Hospitalist Progress Note Assessment/Plan: * right leg pain * improved * ultrasound negative for DVT * recent ureteral stents * chronic versus acute kidney failure * will repeat creatinine tomorrow to see if stent is helping * type 2 diabetes with hyperglycemia this afternoon * she did eat [place] toast with a lot of syrup this morning when I was visiting * will change to consistent carb diet * check white blood cell count tomorrow to help evaluate for underlying infection * disposition * [facility] facility probably tomorrow Subjective: right leg pain much better Objective: Vital Signs Temp Pulse Resp BP Pulse Ox 36.8 C 80 18 95/54 L 97 04/30/17 12:00 04/30/17 12:00 04/30/17 12:00 04/30/17 12:00 04/30/17 12:00 Microbiology 04/28/17 19:17 Gram Stain - Final Other - Aspirate 04/28/17 19:17 Gram Stain - Final Other - Aspirate Laboratory Results 04/28/17 04:14 04/30/17 13:10 04/29/17 04/30/17 05/01/17 05:59 05:59 05:59 Intake Total 2695 2800 Output Total 3065 3700 1000 Balance -370 -900 -1000 - Physical Exam Constitutional: no apparent distress, appears nourished, not in pain Eyes: anicteric sclera, EOMI Ears, Nose, Mouth, Throat: moist mucous membranes, hearing normal Cardiovascular: regular rate and rhythym, no murmur, rub, or gallop, No edema Respiratory: no respiratory distress, clear to auscultation Skin: warm Neurologic: AAOx3 Psychiatric: interacting appropriately, not anxious, not encephalopathic, thought process linear ICD10 Worksheet Patient Problems: Problems Problem Status Onset Bladder neoplasm of uncertain malignant potential Acute Chronic kidney disease Acute Hydronephrosis Acute Urinary retention Acute
[2017-04-30] MEDS: INSULIN GLARGINE 100 UNITS/ML SYRINGE SC SCH (20:59)
[2017-04-30] MEDS: GABAPENTIN 300 MG CAP PO SCH (21:02)
[2017-05-01] MEDS: LEVOTHYROXINE 137 MCG TAB PO SCH (05:12)
[2017-05-01 05:30] LABS: % IMMATURE GRANULYOCYTES 0.3 % (0.0-1.1); ABSOLUTE IMMATURE GRANULOCYTES 0.03 10^3/uL (0.00-0.10); ADD DIFF? NO; ADD MORPH? NO; ADD SCAN? NO; ATYPICAL LYMPHOCYTE FLAG 0 (0-99); FRAGMENT RBC FLAG 0 (0-99); HEMATOCRIT 30.3 % (38.0-47.0); HEMOGLOBIN 9.8 g/dL (12.6-16.3); LEFT SHIFT FLG 0 (0-99); LIPEMIA HEMOLYSIS FLAG 80 (0-99); MEAN CELL HEMOGLOBIN 26.3 pg (27.9-34.1); MEAN CELL HEMOGLOBIN CONCENTR. 32.3 g/dL (32.4-36.7); MEAN CELL VOLUME 81.5 fL (81.5-99.8); MEAN PLATELET VOLUME 8.8 fL (8.7-11.7); PLATELET CLUMPS FLAG 0 (0-99); PLATELET COUNT 335 10^3/uL (150-400); RED BLOOD CELL COUNT 3.72 10^6/uL (4.18-5.33); RED CELL DISTRIBUTION WIDTH 14.5 % (11.5-15.2)
[2017-05-01 05:38] LABS: ANION GAP 7 mEq/L (8-16); CARBON DIOXIDE 23 mEq/l (22-31); CHLORIDE 109 mEq/L (97-110); CREATININE 1.8 mg/dL (0.6-1.0); GLOMERULAR FILTRATION RATE 27; GLUCOSE 113 mg/dL (70-100); SODIUM 139 mEq/L (134-144)
[2017-05-01] MEDS: INSULIN REGULAR HUMAN 100 UNIT/ML SC SCH ×2 (08:07→12:41)
[2017-05-01] MEDS: LISINOPRIL 5 MG TAB PO SCH (08:22)
[2017-05-01] MEDS: ROSUVASTATIN CALCIUM 10 MG TAB PO SCH (08:22)
[2017-05-01] MEDS: glipiZIDE 10 MG TAB PO SCH (08:22)
[2017-05-01] MEDS: traMADol 50 MG TAB PO PRN ×2 (08:31→17:08)
--- NOTE | 2017-05-01 09:38 | HOSPPROG ---
Hospitalist Progress Note Assessment/Plan: 77-year-old female with known chronic kidney disease and diabetes mellitus admitted due to bilateral hydronephrosis. She is status post a bladder biopsy and bilateral stent placement. Chronic kidney disease with a usual creatinine of 1.9 is now stable with a creatinine of 1.8. Patient is new to me today -bilateral hydronephrosis with chronic kidney disease. It appears as though the stents are functioning well with her creatinine stable at 1.8. She has good urinary output. -diabetes mellitus with good glucose control on her usual medications. I would plan to continue these medications per her usual outpatient care. -valvular heart disease: She has mild mitral regurg and severe tricuspid regurgitation with mild to moderate aortic stenosis. She may have seen a mother baby rn in the past but cannot remember. Recommend cardiology follow-up within the next 4 weeks. -right leg pain and chronic peripheral neuropathy: This is improving with less pain in the right leg and almost no pain in the left leg. The peripheral edema has slightly improved also. Despite this improvement she will benefit from PT in a rehab facility. -deconditioning and weakness: Improving and in need of PT OT. -disposition: I recommend the patient be discharged to a rehab facility. She lives at home with the assistance of 2 daughters but also cares for 2 dogs when the daughters are not at home. With any degree of weakness this would represent a fall risk. The rehab stay may only be a approximately 1 week. Recommend cardiology follow-up within 4 weeks for the valvular heart disease. Subjective: Feeling well and reports that the right leg pain and foot pain are much improved. The left foot pain has resolved. She is able to ambulate to the bathroom and back without difficulty. Denies chest pain shortness of breath or abdominal pain. Urinary output has been good. Objective: Vital Signs Temp Pulse Resp BP Pulse Ox 36.4 C 77 17 90/54 L 97 05/01/17 07:52 05/01/17 07:52 05/01/17 07:52 05/01/17 08:22 05/01/17 07:52 Microbiology 04/28/17 19:17 Gram Stain - Final Other - Aspirate 04/28/17 19:17 Gram Stain - Final Other - Aspirate Laboratory Results 05/01/17 05:11 05/01/17 05:11 04/30/17 05/01/17 05/02/17 05:59 05:59 05:59 Intake Total 2800 2600 Output Total 3700 6290 Balance -900 -9280 - Time Spent With Patient Time Spent with Patient: greater than 35 minutes Time Spent with Patient: Greater than 35 minutes spent on this patients care, greater than 50% of time spent counseling, educating, and coordinating care regarding the above mentioned plan. - Pending Discharge Pending Discharge Within 24 Hours: Yes Pending Discharge Date: 05/02/17 Pending Discharge Time: 11:00 - Physical Exam Constitutional: no apparent distress Eyes: PERRL Ears, Nose, Mouth, Throat: moist mucous membranes, hearing normal Cardiovascular: regular rate and rhythym, systolic murmur Respiratory: no respiratory distress, no rales or rhonchi Gastrointestinal: normoactive bowel sounds, soft, non-tender abdomen, no palpable masses Genitourinary: no bladder fullness Musculoskeletal: other (4/5 lower extremity strength bilaterally. Trace to 1+ peripheral edema at the ankles. Some decreased sensation on the plantar surface bilaterally.) Neurologic: AAOx3, CN II-XII Intact ICD10 Worksheet Patient Problems: Problems Problem Status Onset Bladder neoplasm of uncertain malignant potential Acute Chronic kidney disease Acute Hydronephrosis Acute Urinary retention Acute
[2017-05-01 11:25] VITALS: RESP 16
--- NOTE | 2017-05-01 15:22 | PDIAF ---
- Diagnosis Diagnosis: Bladder tumor, hydronephrosis Code Status: Full Code - Medication Management Discharge Medications: Medications to Continue on Transfer Gabapentin [Neurontin 300 MG (*)] 300 mg PO HS 04/19/17 [Last Taken 04/26/17] Herbals/Supplements -Info Only 1 ea PO DAILY 04/19/17 [Last Taken 04/26/17] Insulin Glargine [Lantus 100 UNITS/ML (*)] 42 units SC HS 04/19/17 [Last Taken 04/26/17] Levothyroxine [Synthroid 137 mcg (*)] 137 mcg PO DAILY06 04/19/17 [Last Taken ] Lisinopril [Zestril 5 mg (*)] 5 mg PO DAILY 04/19/17 [Last Taken 04/27/17 05:00] Rosuvastatin Calcium [Crestor 10mg (RX)] 10 mg PO DAILY 04/19/17 [Last Taken 05:00] glipiZIDE [Glucotrol] 10 mg PO BIDMEAL 04/19/17 [Last Taken 04/26/17] traMADol [Ultram 50 mg (*)] 50 mg PO Q4HRS 04/19/17 [Last Taken 04/27/17 05:00] Discharge Medications: Refer to the Discharge Home Medication list for PRN reason. PICC Care - Routine: N/A - Orders Services needed: Registered Nurse, Physical Therapy, Occupational Therapy Diet Recommendation: ADA 2000 consistent carb Diet Texture: Regular Texture Diet Rivera: Yes Activity/Weight Bearing Restrictions: none - Follow Up Care Current Providers and Referrals: Dimitry Xiong MD [Primary Care Provider] - Dimitry Mcnally MD [Medical Doctor] - follow up in 2 weeks
[2017-05-01 15:47] VITALS: BP 133/64; PULSE 92; TEMP 98; O2SAT 92
== END 2017-05-01 17:26 | DRG 669 ==
LOC: F1N 05:58 → OBSVTOIN 04-28 14:30 → F1N 04-29 19:13
PROVIDERS: ADMIT Specialist; ATTEND Specialist
PROC: 0TBB8ZX Excision of Bladder, Via Natural or Artificial Opening Endoscopic, Diagnostic (ICD-10-PCS; principal; 2017-04-27 07:15)
PROC: 0T783DZ Dilation of Bilateral Ureters with Intraluminal Device, Percutaneous Approach (ICD-10-PCS; 2017-04-28)
DX: D30.3 Benign neoplasm of bladder (principal); N13.30 Unspecified hydronephrosis; N18.9 Chronic kidney disease, unspecified; E11.9 Type 2 diabetes mellitus without complications; E03.9 Hypothyroidism, unspecified; Z98.1 Arthrodesis status; Z96.642 Presence of left artificial hip joint; G62.89 Other specified polyneuropathies; N81.10 Cystocele, unspecified; R33.9 Retention of urine, unspecified; I12.9 Hypertensive chronic kidney disease with stage 1 through stage 4 chronic kidney disease, or unspecified chronic kidney disease; G47.33 Obstructive sleep apnea (adult) (pediatric)
CPT/HCPCS: 82947-QW; 97116-GP; 97161-GP; C1729; C1769; C1894; G0378; G8978-GP-CK; G8979-GP-CI; J1170; J1644; J1815; J1956; J2704; J3010; Q9967

== ENCOUNTER → 2017-08-11 | Outpatient (CLI) | payer OTHER | LOC: BRMIMAGING 11:28 | PROVIDERS: ATTEND Physician Assistant Medical | DX: N13.30 Unspecified hydronephrosis (principal) | CPT/HCPCS: 76770-PO ==

== ENCOUNTER → 2017-11-13 | Outpatient (CLI) | payer OTHER ==
[~2017-11-13] MED LIST: FUROSEMIDE 40 MG/4 ML VIAL ONE
== END ==
LOC: FIMAGING 13:03
PROVIDERS: ATTEND Physician Assistant Medical
DX: N13.1 Hydronephrosis with ureteral stricture, not elsewhere classified (principal)
CPT/HCPCS: 78708; A9562; J1940